=== PATIENT | female | born 1985 | race Caucasian/White ===

== ENCOUNTER → 2019-11-05 | Outpatient (REF) | payer MEDICAID, OTHER | LOC: M SFHCWAGY 18:12 | PROVIDERS: ATTEND Specialist | DX: N87.1 Moderate cervical dysplasia (principal) ==

== ENCOUNTER → 2020-11-30 | Outpatient (REF) | payer MEDICAID, OTHER | LOC: M SFHCWAGY 12:56 | PROVIDERS: ATTEND Specialist | DX: Z12.4 Encounter for screening for malignant neoplasm of cervix (principal) ==

== ENCOUNTER 2021-01-26 16:57 | Emergency (ER) | payer OTHER ==
[~2021-01-26] VITALS: Ht 175.3 cm; Wt 93.4 kg
[2021-01-26 16:58] VITALS: BP 148/67
== END 2021-01-26 20:18 | disposition left against medical advice (07) ==
LOC: M ED 16:57
DX: Z53.21 Procedure and treatment not carried out due to patient leaving prior to being seen by health care provider (principal)